=== PATIENT | male | born 1975 | race Caucasian/White ===

== ENCOUNTER → 2018-02-06 | Outpatient (CLI) | payer OTHER ==
--- NOTE | 2018-02-07 05:18 | MR ---
EXAMINATION TYPE: MR cervical spine wo con DATE OF EXAM: 02/06/2018 COMPARISON: HISTORY: Neck pain TECHNIQUE: Multiplanar, multisequence images of the cervical spine were acquired. The cervical vertebra have normal alignment. Disc spaces are fairly well-maintained. Cervical spinal cord has normal signal pattern. There is no edema. There is no cervical paraspinal mass. Posterior el ements are intact. There is no spinal stenosis. I see no bony destructive process. Skull base appears normal. Brainstem appears intact. IMPRESSION: Negative MR scan of the cervical spine. No disc herniation or spinal stenosis.
== END | disposition home or self-care (01) ==
LOC: RADMRIMAIN 20:00
PROVIDERS: ATTEND Psychiatry & Neurology Neurology
DX: M54.2 Cervicalgia (principal); M54.5 Low back pain
CPT/HCPCS: 72141

== ENCOUNTER → 2018-02-08 | Outpatient (CLI) | payer OTHER | END | disposition home or self-care (01) | LOC: RADMRIMAIN 19:24 | PROVIDERS: ATTEND Psychiatry & Neurology Neurology | DX: Z53.9 Procedure and treatment not carried out, unspecified reason (principal) ==

== ENCOUNTER → 2018-03-09 | Outpatient (CLI) | payer OTHER ==
[2018-03-09 14:28] LABS: Blood Urea Nitrogen 16 mg/dL (9-20)
--- NOTE | 2018-03-11 08:53 | MR ---
EXAMINATION TYPE: MR lumbar spine wo/w con DATE OF EXAM: 03/09/2018 3:16 PM COMPARISON: NONE HISTORY: Low back pain CONTRAST: The patient was injected with 7.5 mL intravenous Gadavist gadolinium contrast. Multiplanar, MultiSpin echo imaging of the lumbar spine was performed. L1-L2: Mild disc desiccation noted. Mild circumferential disc bulge with minimal effacement ventral t hecal sac. No evidence for disc herniation protrusion or central stenosis. Foramina are patent bilate rally. L2-L3: Normal disc appearance without desiccation. No herniation, protrusion or disc bulging. No ca nal stenosis is present. Foramina are patent bilaterally. L3-L4: Mild disc desiccation noted. Mild circumferential disc bulge with minimal effacement ventral t hecal sac. No evidence for disc herniation protrusion or central stenosis. Foramina are patent bilate rally. L4-L5: Mild disc desiccation noted. Left paracentral disc bulge with a mild annular tear. No evidence for delaney disc herniation. No central stenosis or foraminal encroachment. L5-S1: Normal disc appearance without desiccation. No herniation, protrusion or disc bulging. No ca nal stenosis is present. Foramina are patent bilaterally. Lumbar segments are intact. No paraspinal masses are identified. Conus medullaris has a normal appe arance. No pathologic enhancement detected. IMPRESSION: 1. Disc desiccation is noted. 2. Left paracentral disc bulge with annular tear at L4-5 as discussed.
== END | disposition home or self-care (01) ==
LOC: RADMRIMAIN 13:42
PROVIDERS: ATTEND Psychiatry & Neurology Neurology
DX: M51.26 Other intervertebral disc displacement, lumbar region (principal)
CPT/HCPCS: 82565; 84520; 72158; 36415; A9585

== ENCOUNTER → 2018-04-27 | Outpatient (CLI) | payer OTHER ==
[2018-04-27 12:20] LABS: HCT 54.6 % (39.0-53.0); HGB 18.1 gm/dL (13.0-17.5); MCH 31.8 pg (25.0-35.0); MCHC 33.2 g/dL (31.0-37.0); MCV 95.8 fL (80.0-100.0); Mean Platelet Volume 6.6; Platelet Count 229 k/uL (150-450); RBC 5.71 m/uL (4.30-5.90); RDW 14.2 % (11.5-15.5); WBC 9.6 k/uL (3.8-10.6)
[2018-04-27 16:51] LABS: Albumin 4.2 g/dL (3.80-4.90); Albumin/Globulin Ratio 1.91 (1.20-2.10); Anion Gap 2.6 mmol/L (4.00-12.00); Calcium 9.9 mg/dL (8.7-10.3); Carbon Dioxide 30.4 mmol/L (21.6-31.8); Globulin 2.2 g/dL (2.1-3.7); LDL Cholesterol,Calculated 98.8 mg/dL (0.0-131.0); Potassium 5.2 mmol/L (3.5-5.5); Total Bilirubin 0.8 mg/dL (0.2-1.2); Total Protein 6.4 g/dL (6.2-8.2); VLDL Calculation 27.2 mg/dL (5.00-40.00)
[2018-04-27 16:58] LABS: T4, Free (Free Thyroxine) 1.2 ng/dL (0.80-1.80)
[2018-04-27 17:15] LABS: Hemoglobin A1C 5.7 % (4.0-6.0)
[2018-04-29 22:28] LABS: Hepatitis A Antibody IgM Non-Reactive (Non-Reactive); Hepatitis B Core IgM Non-Reactive (Non-Reactive)
== END ==
LOC: LABWHC1 11:24
PROVIDERS: ATTEND Family Medicine
DX: Z00.00 Encounter for general adult medical examination without abnormal findings (principal); E03.9 Hypothyroidism, unspecified; F17.210 Nicotine dependence, cigarettes, uncomplicated; Z12.5 Encounter for screening for malignant neoplasm of prostate
CPT/HCPCS: 36415; 80053; 80061; 80074; 83036; 84153; 84439; 84443; 85027

== ENCOUNTER 2020-09-27 11:57 | Emergency (ER) | payer OTHER ==
[2020-09-27 12:03] VITALS: TEMP 98
[2020-09-27] MEDS ORDERED: ASPIRIN 81 MG PO STA (12:12)
[2020-09-27] MEDS ORDERED: IPRATROPIUM-ALBUTEROL 3 ML NEB INHALATION STA (12:42)
[2020-09-27] MEDS ORDERED: methylPREDNISolone SOD SUCCI 125 MG/2 ML VIAL IV STA (12:42)
--- NOTE | 2020-09-27 12:47 | ED ---
General Adult HPI - General Chief complaint: Chest Pain Stated complaint: collapsing Time Seen by Provider: 09/27/20 12:05 Source: patient, family Mode of arrival: wheelchair Limitations: no limitations - History of Present Illness Initial comments: 45-year-old male with a past medical history of hypertension, valve replacement, CHD, nicotine dependence presents to the emergency room for a chief complaint of chest pain. Patient reports and history as a dull ache in his chest. States it radiates to his left shoulder. Patient also admits to some mild shortness of breath but states that this is not abnormal for him. Patient reports the pain worsens with exertion. Patient denies nausea or diaphoresis. Patient denies any pain radiating to the back. Denies any ripping or tearing pain. Patient does have a smoking history and history of hypertension.Patient has no other complaints at this time including abdominal pain, nausea or vomiting, headache, or visual changes. - Related Data Home Medications Medication Instructions Recorded Confirmed Unable To Assess [Unable to Assess] 01/17/15 01/17/15 Allergies Allergy/AdvReac Type Severity Reaction Status Date / Time No Known Allergies Allergy Verified 09/27/20 12:03 Review of Systems ROS Statement: Those systems with pertinent positive or pertinent negative responses have been documented in the HPI. ROS Other: All systems not noted in ROS Statement are negative. Past Medical History Past Medical History: Hypertension History of Any Multi-Drug Resistant Organisms: None Reported Additional Past Surgical History / Comment(s): heart bypass, valve replacement, tetralogy of fallot as an . Past Psychological History: Anxiety Smoking Status: Current every day smoker Past Alcohol Use History: Occasional Past Drug Use History: None Reported General Exam Limitations: no limitations General appearance: alert, in no apparent distress Head exam: Present: atraumatic, normocephalic, normal inspection Eye exam: Present: normal appearance ENT exam: Present: normal exam Neck exam: Present: normal inspection, full ROM. Absent: tenderness, meningismus, lymphadenopathy Respiratory exam: Present: wheezes. Absent: respiratory distress, rales, rhonchi, stridor Cardiovascular Exam: Present: regular rate, normal rhythm, normal heart sounds. Absent: systolic murmur, diastolic murmur, rubs, gallop, clicks GI/Abdominal exam: Present: soft, normal bowel sounds. Absent: distended, tenderness, guarding, rebound, rigid Course Vital Signs 05/17/21 05/17/21 05/17/21 12:00 13:01 13:03 Temperature 98 F Pulse Rate 90 86 82 Respiratory 22 18 Rate Blood Pressure 161/98 162/94 O2 Sat by Pulse 97 95 Oximetry 09/27/20 13:09 Temperature Pulse Rate 88 Respiratory Rate Blood Pressure O2 Sat by Pulse Oximetry EKG Findings - EKG Comments: EKG Findings:: Normal sinus rhythm, ventricular rate 85, RI interval 1:30, QTC 509 Medical Decision Making - Medical Decision Making Vitals are stable. Patient is well-appearing. Patient does have chest pain today radiating to the left shoulder with pain worsening on exertion. CBC is unremarkable however patient does have elevated hemoglobin likely secondary to chronic smoking. CMP is unremarkable. EKG does show a right bundle, troponin negative. Chest x-ray does not show any acute process. Patient does have a history of tetralogy of flow. Given chest pain with typical symptoms and cardiac history patient will be admitted for cardiology consultation. I did speak with Dr. Levine who would like me to verify patient wants to stay here or to [facility] given his CHD history. Patient prefers to go to [facility] for this. Patient is adamantly refusing in the transport stating that his significant other will drive him. I did discuss I prefer for him to go by ambulance however he is adamantly refusing, aware of the risks of private vehicle transport. - Lab Data Result diagrams: 09/27/20 12:34 09/27/20 12:34 Lab Results 09/27/20 09/27/20 09/27/20 Range/Units 12:12 12:34 12:34 WBC 9.9 (3.8-10.6) k/uL RBC 5.79 (4.30-5.90) m/uL Hgb 18.4 H (13.0-17.5) gm/dL Hct 54.7 H (39.0-53.0) % MCV 94.5 (80.0-100.0) fL MCH 31.7 (25.0-35.0) pg MCHC 33.6 (31.0-37.0) g/dL RDW 13.8 (11.5-15.5) % Plt Count 254 (150-450) k/uL MPV 6.6 Neutrophils % 74 % Lymphocytes % 17 % Monocytes % 6 % Eosinophils % 2 % Basophils % 1 % Neutrophils # 7.3 (1.3-7.7) k/uL Lymphocytes # 1.7 (1.0-4.8) k/uL Monocytes # 0.6 (0-1.0) k/uL Eosinophils # 0.2 (0-0.7) k/uL Basophils # 0.1 (0-0.2) k/uL PT 10.4 (9.0-12.0) sec INR 1.0 (<1.2) APTT 24.4 (22.0-30.0) sec Sodium (137-145) mmol/L Potassium (3.5-5.1) mmol/L Chloride (98-107) mmol/L Carbon Dioxide (22-30) mmol/L Anion Gap mmol/L BUN (9-20) mg/dL Creatinine (0.66-1.25) mg/dL Est GFR (CKD-EPI)AfAm (>60 ml/min/1.73 sqM) Est GFR (CKD-EPI)NonAf (>60 ml/min/1.73 sqM) Glucose (74-99) mg/dL Calcium (8.4-10.2) mg/dL Magnesium (1.6-2.3) mg/dL Total Bilirubin (0.2-1.3) mg/dL AST (17-59) U/L ALT (4-49) U/L Alkaline Phosphatase (38-126) U/L Troponin I (0.000-0.034) ng/mL NT-Pro-B Natriuret Pep pg/mL Total Protein (6.3-8.2) g/dL Albumin (3.5-5.0) g/dL Coronavirus (PCR) Not Detected (Not Detectd) 09/27/20 09/27/20 09/27/20 Range/Units 12:34 12:34 12:34 WBC (3.8-10.6) k/uL RBC (4.30-5.90) m/uL Hgb (13.0-17.5) gm/dL Hct (39.0-53.0) % MCV (80.0-100.0) fL MCH (25.0-35.0) pg MCHC (31.0-37.0) g/dL RDW (11.5-15.5) % Plt Count (150-450) k/uL MPV Neutrophils % % Lymphocytes % % Monocytes % % Eosinophils % % Basophils % % Neutrophils # (1.3-7.7) k/uL Lymphocytes # (1.0-4.8) k/uL Monocytes # (0-1.0) k/uL Eosinophils # (0-0.7) k/uL Basophils # (0-0.2) k/uL PT (9.0-12.0) sec INR (<1.2) APTT (22.0-30.0) sec Sodium 141 (137-145) mmol/L Potassium 4.1 (3.5-5.1) mmol/L Chloride 105 (98-107) mmol/L Carbon Dioxide 30 (22-30) mmol/L Anion Gap 6 mmol/L BUN 17 (9-20) mg/dL Creatinine 1.05 (0.66-1.25) mg/dL Est GFR (CKD-EPI)AfAm >90 (>60 ml/min/1.73 sqM) Est GFR (CKD-EPI)NonAf 85 (>60 ml/min/1.73 sqM) Glucose 104 H (74-99) mg/dL Calcium 9.8 (8.4-10.2) mg/dL Magnesium 1.8 (1.6-2.3) mg/dL Total Bilirubin 0.8 (0.2-1.3) mg/dL AST 33 (17-59) U/L ALT 35 (4-49) U/L Alkaline Phosphatase 48 (38-126) U/L Troponin I <0.012 (0.000-0.034) ng/mL NT-Pro-B Natriuret Pep 194 pg/mL Total Protein 7.3 (6.3-8.2) g/dL Albumin 4.2 (3.5-5.0) g/dL Coronavirus (PCR) (Not Detectd) Disposition Clinical Impression: Chest pain Disposition: OTHER INSTITUTION NOT DEFINED Is patient prescribed a controlled substance at d/c from ED?: No Referrals: Joesph Levine Jr, [Primary Care Provider] - 1-2 days Time of Disposition: 13:52 - Out of Hospital Transfer - Req. Specs Out of Hospital Transfer - Requested Specifics: Other Emergency [facility] ([facility])
[2020-09-27 12:53] LABS: Basophils # (A) 0.1 k/uL (0-0.2); Basophils % (A) 1 %; Eosinophils # (A) 0.2 k/uL (0-0.7); Eosinophils % (A) 2 %; HCT 54.7 % (39.0-53.0); HGB 18.4 gm/dL (13.0-17.5); Lymphocytes # (A) 1.7 k/uL (1.0-4.8); Lymphocytes % (A) 17 %; MCH 31.7 pg (25.0-35.0); MCHC 33.6 g/dL (31.0-37.0); MCV 94.5 fL (80.0-100.0); Mean Platelet Volume 6.6; Monocytes # (A) 0.6 k/uL (0-1.0); Monocytes % (A) 6 %; Neutrophils # (A) 7.3 k/uL (1.3-7.7); Neutrophils % (A) 74 %; Platelet Count 254 k/uL (150-450); RBC 5.79 m/uL (4.30-5.90); RDW 13.8 % (11.5-15.5); WBC 9.9 k/uL (3.8-10.6)
[2020-09-27 13:04] LABS: ALT 35 U/L (4-49); AST 33 U/L (17-59); African American GFR (CKD) >90 (>60 ml/min/1.73 sqM); Albumin 4.2 g/dL (3.5-5.0); Alkaline Phosphatase 48 U/L (38-126); Anion Gap 6 mmol/L; Blood Urea Nitrogen 17 mg/dL (9-20); Calcium 9.8 mg/dL (8.4-10.2); Carbon Dioxide 30 mmol/L (22-30); Chloride 105 mmol/L (98-107); Glucose 104 mg/dL (74-99); Magnesium 1.8 mg/dL (1.6-2.3); Non-African American GFR(CKD) 85 (>60 ml/min/1.73 sqM); Potassium 4.1 mmol/L (3.5-5.1); Sodium 141 mmol/L (137-145); Total Bilirubin 0.8 mg/dL (0.2-1.3); Total Protein 7.3 g/dL (6.3-8.2)
--- NOTE | 2020-09-27 13:07 | XR ---
EXAMINATION TYPE: XR chest 2V DATE OF EXAM: 09/27/2020 COMPARISON: Chest x-rays 01/17/2015 HISTORY: Chest pain TECHNIQUE: Frontal and lateral views of the chest are obtained. FINDINGS: There is no focal air space opacity, pleural effusion, or pneumothorax seen. The cardiac silhouette size is stable. There is increased AP diameter of the chest, patient is post median sterno brittanie. There is a stent present at the level of the paraspinal location as on prior, paraspinal densit y is stable at this level. Embolization wires are present superimposed over the mediastinum as on ritchie or exam. The osseous structures are intact. IMPRESSION: No acute cardiopulmonary process. Postop changes. Correlate with surgical history.
[2020-09-27 13:26] LABS: Partial Thromboplastin Time 24.4 sec (22.0-30.0); Prothrombin Time 10.4 sec (9.0-12.0)
[2020-09-27] MEDS ORDERED: NITROGLYCERIN SL TABS 0.4 MG TAB SUBLINGUAL PRN (13:52)
[2020-09-27 14:37] VITALS: RESP 20
[2020-09-27] MEDS ORDERED: ALPRAZolam 0.5 MG TAB PO STA (14:49)
[2020-09-27 15:12] VITALS: BP 155/88; PULSE 88
[2020-09-27] MEDS ORDERED: IPRATROPIUM-ALBUTEROL 3 ML NEB INHALATION SCH (18:00)
[2020-09-28] MEDS ORDERED: ASPIRIN 325 MG TAB PO SCH (09:00)
== END 2020-09-27 15:12 | disposition other institution (70) ==
LOC: EC 11:57
DX: R07.89 Other chest pain (principal); I10 Essential (primary) hypertension; F17.200 Nicotine dependence, unspecified, uncomplicated; Z95.1 Presence of aortocoronary bypass graft; Z95.2 Presence of prosthetic heart valve; Z20.822 Contact with and (suspected) exposure to COVID-19
CPT/HCPCS: 99285 ×2; 96374 ×2; 36415; 94640; 93005; 83880; 80053; 83735; 84484; 85025; 85610; 85730; 87635; 71046; J2930

== ENCOUNTER 2020-09-30 14:04 | Emergency (ER) | payer OTHER ==
--- NOTE | 2020-09-30 15:30 | ED ---
General Adult HPI - General Chief complaint: Psychiatric Symptoms Stated complaint: Mental Health Time Seen by Provider: 09/30/20 14:51 Source: patient, RN notes reviewed Mode of arrival: ambulatory Limitations: no limitations - History of Present Illness Initial comments: 35-year-old male with a past medical history of hypertension who presents to the emergency room for a chief complaint of anxiety. Patient reports that his anxiety has been acting out more than normal recently. States things in his life are adding up. States there is stress involving his children. Patient reports he has a history of anxiety and used to take medication for this but stopped. States he is trying to get into an outpatient counselor. He does report that recently he has had thoughts of suicide but does not have a plan and would never let it get that far. He notes he has his kids to live for. Patient has no other complaints at this time including shortness of breath, chest pain, abdominal pain, nausea or vomiting, headache, or visual changes. - Related Data Home Medications Medication Instructions Recorded Confirmed Albuterol Nebulized [Ventolin 2.5 mg INHALATION RT-Q6H PRN 09/27/20 09/27/20 Nebulized] Aspirin 81 mg PO DAILY 09/27/20 09/27/20 Baclofen [Lioresal] 20 mg PO BID 09/27/20 09/27/20 Cetirizine HCl 10 mg PO HS 09/27/20 09/27/20 Cholecalciferol [Vitamin D3 (25 25 mcg PO DAILY 09/27/20 09/27/20 Mcg = 1000 Iu)] Cyanocobalamin (Vitamin B-12) 1,000 mcg PO DAILY 09/27/20 09/27/20 [Vitamin B-12] Dextroamphetamine/Amphetamine 20 mg PO BID 09/27/20 09/27/20 [Adderall] Fluticasone Propionate [Flovent 2 puff INHALATION BID 09/27/20 09/27/20 Hfa 220 mcg] HYDROcodone/APAP 5-325MG [[place] 1 tab PO TID PRN 09/27/20 09/27/20 5-325] Ibuprofen [Motrin] 800 mg PO Q8H 09/27/20 09/27/20 Levothyroxine Sodium 25 mcg PO DAILY 09/27/20 09/27/20 Losartan Potassium 50 mg PO DAILY 09/27/20 09/27/20 Montelukast [Singulair] 10 mg PO DAILY 09/27/20 09/27/20 Naloxone HCl [Narcan] 1 spray NASAL DIRECTED 09/27/20 09/27/20 Omeprazole 20 mg PO DAILY 09/27/20 09/27/20 Vit C/Ascorb Sod/Multivit-Min 1,000 mg PO DAILY 09/27/20 09/27/20 [Emergen-C 500 mg Chewable Tab] Vitamin B Complex 1 cap PO DAILY 09/27/20 09/27/20 Vitamin C W/ Zinc 1 tab PO DAILY 09/27/20 amLODIPine [Norvasc] 2.5 mg PO DAILY 09/27/20 09/27/20 atenoloL [Tenormin] 25 mg PO DAILY 09/27/20 09/27/20 Allergies Allergy/AdvReac Type Severity Reaction Status Date / Time No Known Allergies Allergy Verified 09/30/20 14:05 Review of Systems ROS Statement: Those systems with pertinent positive or pertinent negative responses have been documented in the HPI. ROS Other: All systems not noted in ROS Statement are negative. Past Medical History Past Medical History: Hypertension History of Any Multi-Drug Resistant Organisms: None Reported Past Surgical History: Coronary Bypass/CABG Additional Past Surgical History / Comment(s): heart bypass, valve replacement, tetralogy of fallot as an . Past Psychological History: Anxiety Smoking Status: Current every day smoker Past Alcohol Use History: Occasional Past Drug Use History: Marijuana General Exam Limitations: no limitations General appearance: alert, in no apparent distress, anxious Head exam: Present: atraumatic, normocephalic, normal inspection Eye exam: Present: normal appearance, PERRL, EOMI. Absent: scleral icterus, conjunctival injection, periorbital swelling ENT exam: Present: normal exam, mucous membranes moist Neck exam: Present: normal inspection, full ROM. Absent: tenderness, meningismus, lymphadenopathy Respiratory exam: Present: normal lung sounds bilaterally. Absent: respiratory distress, wheezes, rales, rhonchi, stridor Cardiovascular Exam: Present: regular rate, normal rhythm, normal heart sounds. Absent: systolic murmur, diastolic murmur, rubs, gallop, clicks GI/Abdominal exam: Present: soft, normal bowel sounds. Absent: distended, ten derness, guarding, rebound, rigid Neurological exam: Present: alert, oriented X3 Psychiatric exam: Present: suicidal ideation. Absent: homicidal ideation Course Vital Signs 09/30/20 09/30/20 09/30/20 14:05 15:41 20:32 Temperature 97.9 F 97.8 F 97.8 F Pulse Rate 76 73 70 Respiratory 18 16 20 Rate Blood Pressure 156/93 159/98 O2 Sat by Pulse 98 98 97 Oximetry Medical Decision Making - Medical Decision Making Patient was seen by EPS, recommending outpatient management. Patient does have a safety plan. Patient will follow-up at [facility] which she has already contacted and has an appointment scheduled for. He will return for any worsening symptoms. - Lab Data Lab Results 09/30/20 Range/Units 15:51 Urine Opiates Screen Not Detected (NotDetected) Ur Oxycodone Screen Not Detected (NotDetected) Urine Methadone Screen Not Detected (NotDetected) Ur Propoxyphene Screen Not Detected (NotDetected) Ur Barbiturates Screen Not Detected (NotDetected) U Tricyclic Antidepress Not Detected (NotDetected) Ur Phencyclidine Scrn Not Detected (NotDetected) Ur Amphetamines Screen Detected H (NotDetected) U Methamphetamines Scrn Not Detected (NotDetected) U Benzodiazepines Scrn Not Detected (NotDetected) Urine Cocaine Screen Not Detected (NotDetected) U Marijuana (THC) Screen Detected H (NotDetected) Disposition Clinical Impression: Depression Disposition: HOME SELF-CARE Condition: Good Instructions (If sedation given, give patient instructions): Depression (ED) Additional Instructions: Please follow up with your doctor. Return to the emergency room for any worsening symptoms. Is patient prescribed a controlled substance at d/c from ED?: No Referrals: Joesph Levine Jr, [Primary Care Provider] - 1-2 days Time of Disposition: 21:16
[2020-09-30 15:42] VITALS: TEMP 97.8
[2020-09-30 16:13] LABS: Amphetamine Screen,Urine Detected (NotDetected); Barbiturate Screen,Urine Not Detected (NotDetected); Benzodiazepines Screen,Urine Not Detected (NotDetected); Cocaine Screen,Urine Not Detected (NotDetected); Methadone Screen, Urine Not Detected (NotDetected); Opiate Screen,Urine Not Detected (NotDetected); Oxycodone Screen, Urine Not Detected (NotDetected); Phencyclidine Screen,Urine Not Detected (NotDetected); Tricyclic Antidepressant,Urine Not Detected (NotDetected); Urn Cannabinoid Scrn Detected (NotDetected)
[2020-09-30 20:36] VITALS: BP 159/98; PULSE 70; RESP 20
== END 2020-09-30 21:30 | disposition home or self-care (01) ==
LOC: EC 14:04
DX: F32.9 Major depressive disorder, single episode, unspecified (principal); F41.9 Anxiety disorder, unspecified; R45.851 Suicidal ideations; I10 Essential (primary) hypertension; Z79.82 Long term (current) use of aspirin; Z79.1 Long term (current) use of non-steroidal anti-inflammatories (NSAID); F17.200 Nicotine dependence, unspecified, uncomplicated; F12.90 Cannabis use, unspecified, uncomplicated
CPT/HCPCS: 80306; 82075; 99285

== ENCOUNTER 2023-06-11 11:53 | Day surgery (SDC) | payer OTHER ==
[2023-06-06 12:27] VITALS: BMI 28.8
[~2023-06-11 11:53] MED LIST: LACTATED RINGERS 1,000 ML IV SCH; LIDOCAINE 1% (10MG/ML) FOR IV START INTRADERMA PRN
[2023-06-11 13:23] VITALS: RESP 16; TEMP 97.7
[2023-06-11] MEDS ORDERED: PROPOFOL 10 MG/ML 20 ML VIAL IV ONE (14:10)
[2023-06-11] MEDS ORDERED: LIDOCAINE 1% INJ 10MG/ML (20 ML MDV) ONE (14:10)
--- NOTE | 2023-06-11 14:28 | P.OP ---
Date of Procedure: 06/11/23 Preoperative Diagnosis: Gerd Postoperative Diagnosis: Antral gastritis Hiatal hernia Esophagitis Procedure(s) Performed: EGD Anesthesia: MAC Surgeon: Kedar Mullen Pathology: other (antrum, esophagus) Condition: stable Disposition: PACU Description of Procedure: Patient was placed on the endoscopy table in the lateral position. He received IV sedation. The gas was placed oropharynx passed in the esophagus and the stomach. Scope was placed through the pylorus. The first and second portion of the duodenum appeared normal. Scope was then repacked the antrum was. Mild inflamed. A biopsy was performed. The scope was then retroflexed remainder of the stomach appeared normal. The patient had a moderate size hiatal hernia. The GE junction was at 40 cm. The distal esophagus. Flaim. A biopsy performed. The proximal esophagus appeared normal. Scope was withdrawn for the patient.
[2023-06-11 14:48] VITALS: BP 137/84; PULSE 58
== END 2023-06-11 15:02 | disposition home or self-care (01) ==
LOC: ORWHC2ENDO 11:53
PROVIDERS: ATTEND Surgery
DX: K29.50 Unspecified chronic gastritis without bleeding (principal); K31.9 Disease of stomach and duodenum, unspecified; K21.00 Gastro-esophageal reflux disease with esophagitis, without bleeding; K44.9 Diaphragmatic hernia without obstruction or gangrene
CPT/HCPCS: 88305; 43239; J2001; J2704

== ENCOUNTER → 2023-06-14 | Outpatient (CLI) | payer OTHER ==
--- NOTE | 2023-06-14 15:27 | NM ---
EXAMINATION TYPE: NM hepatobiliary w CCK DATE OF EXAM: 06/14/2023 COMPARISON: NONE CLINICAL INDICATION: Male, 47 years old with history of K82.8 BILIARY DYSKINESIA; TECHNIQUE: After the intravenous administration of 4.8 mCi Tc 99m Mebrofenin hepatobiliary scintigrap hy is performed. Immediate images post injection. FINDINGS: There is satisfactory initial accumulation of tracer by the liver. The gallbladder is visualized wit hin 6 minutes. The small bowel activity is noted within 18 minutes. At one hour CCK was administere d, patient was injected with 1.7 mcg of Kinevac, and gallbladder ejection fraction is calculated at 9 2 %, elevated above the expected range (35-80%). IMPRESSION: 1. No scintigraphic evidence for acute/chronic cholecystitis or biliary dyskinesia. 2. Increased gallbladder ejection fraction of 92% may be seen with gallbladder hyperkinesis.
== END | disposition home or self-care (01) ==
LOC: RADNMMAIN 06:53
PROVIDERS: ATTEND Surgery
DX: K82.8 Other specified diseases of gallbladder (principal)
CPT/HCPCS: 78227; A9537; J2805

== ENCOUNTER 2023-07-30 06:45 | Day surgery (SDC) | payer BC, OTHER ==
[~2023-07-30 06:45] MED LIST changes: +DEXAMETHASONE SOD PHOSPHATE 4 MG/ML 1 ML VIAL IV ONE; +HYDROmorphone 0.5 MG/0.5 ML SYRINGE IVP PRN; -LACTATED RINGERS 1,000 ML IV SCH; +METOCLOPRAMIDE 5 MG/ML 2 ML VIAL IVP PRN; +ONDANSETRON 4 MG/2 ML VIAL IVP ONE
[2023-07-30] MEDS: LACTATED RINGERS 1,000 ML IV SCH (07:18)
[2023-07-30] MEDS ORDERED: METOCLOPRAMIDE 5 MG/ML 2 ML VIAL IVP STA (07:24)
[2023-07-30] MEDS: ONDANSETRON 4 MG/2 ML VIAL ONE (07:25)
[2023-07-30] MEDS: DEXAMETHASONE SOD PHOSPHATE 4 MG/ML 1 ML VIAL IVP ONE (07:26)
[2023-07-30] MEDS ORDERED: diphenhydrAMINE 50 MG/ML 1 ML VIAL ONE (07:27)
[2023-07-30] MEDS: diphenhydrAMINE 50 MG/ML 1 ML VIAL IVP STA (07:35)
[2023-07-30 07:38] LABS: Basophils # (A) 0.1 k/uL (0-0.2); Basophils % (A) 1 %; Eosinophils # (A) 0.2 k/uL (0-0.7); Eosinophils % (A) 2 %; HCT 45.7 % (39.0-53.0); HGB 15.1 gm/dL (13.0-17.5); Lymphocytes # (A) 1.7 k/uL (1.0-4.8); Lymphocytes % (A) 14 %; MCH 31.2 pg (25.0-35.0); MCHC 33.1 g/dL (31.0-37.0); MCV 94.1 fL (80.0-100.0); Mean Platelet Volume 6.8; Monocytes # (A) 0.7 k/uL (0-1.0); Monocytes % (A) 6 %; Neutrophils # (A) 9.4 k/uL (1.3-7.7); Neutrophils % (A) 77 %; Platelet Count 216 k/uL (150-450); RBC 4.85 m/uL (4.30-5.90); RDW 14.6 % (11.5-15.5); WBC 12.1 k/uL (3.8-10.6)
[2023-07-30] MEDS: METOCLOPRAMIDE 5 MG/ML 2 ML VIAL ONE (07:40)
[2023-07-30] MEDS: FAMOTIDINE 20 MG/2 ML VIAL IV SCH (07:41)
[2023-07-30 07:49] LABS: African American GFR (CKD) 67 (>60 ml/min/1.73 sqM); Anion Gap 7 mmol/L; Blood Urea Nitrogen 25 mg/dL (9-20); Calcium 9.2 mg/dL (8.4-10.2); Carbon Dioxide 25 mmol/L (22-30); Chloride 109 mmol/L (98-107); Glucose 116 mg/dL (74-99); Non-African American GFR(CKD) 58 (>60 ml/min/1.73 sqM); Potassium 4.3 mmol/L (3.5-5.1); Sodium 141 mmol/L (137-145)
[2023-07-30] MEDS ORDERED: SUCCINYLCHOLINE CHLORIDE 200 MG/10 ML VIAL IV ONE (07:50)
[2023-07-30] MEDS ORDERED: GLYCOPYRROLATE 0.2 MG/ML 2 ML VIAL ONE (07:50)
[2023-07-30] MEDS ORDERED: LIDOCAINE 1% INJ 10MG/ML (20 ML MDV) ONE (07:50)
[2023-07-30] MEDS ORDERED: fentaNYL (PF) 50 MCG/ML 2 ML AMP ONE (07:50)
[2023-07-30] MEDS ORDERED: NEOSTIGMINE 1 MG/ML 10 ML VIAL ONE (07:50)
[2023-07-30] MEDS ORDERED: ROCURONIUM 10 MG/ML (5 ML VIAL) IV ONE (07:50)
[2023-07-30] MEDS ORDERED: PROPOFOL 10 MG/ML 20 ML VIAL IV ONE (07:50)
[2023-07-30] MEDS ORDERED: MIDAZOLAM 2 MG/2 ML VIAL ONE (07:50)
[2023-07-30] MEDS ORDERED: HYDROmorphone (PF) 1 MG/ML ONE (07:50)
[2023-07-30] MEDS: BUPIVACAINE (PF) 0.25% 30 ML VIAL SQ ONE (08:16)
--- NOTE | 2023-07-30 08:40 | P.OP ---
Date of Procedure: 07/30/23 Preoperative Diagnosis: Cholecystitis Postoperative Diagnosis: Cholecystitis Procedure(s) Performed: Laparoscopic cholecystectomy Anesthesia: PRISCILLA Surgeon: Kedar Mullen Estimated Blood Loss (ml): 5 Pathology: other (Gallbladder) Condition: stable Disposition: PACU Description of Procedure: The patient was placed on the operating table. The patient received a general endotracheal tube anesthesia. The patients abdomen was prepped and draped in the usual sterile fashion. Through an infraumbilical stab incision, the fascia of the anterior abdominal wall was grasped with a pair of Kochers and then the Veress needle was placed in the peritoneal cavity. Position of the Veress needle was confirmed with positive drop test. The abdomen was then insufflated. After adequate insufflation, the 10 mm trocar was placed in the peritoneal cavity. Following this the laparoscope was placed in the peritoneal cavity. The patient was placed in the head-up, right side up position and then a 5 mm trocar was placed in the right lateral and right subcostal position under direct visualization. A 8 mm trocar was placed in the epigastric position. The gallbladder was grasped in the fundus and infundibulum. Traction on the gallbladder was placed in the lateral and the cephalad positions. The triangle of Calot was visualized.. The cystic duct was bluntly dissected until the union of the cystic duct and common bile duct was seen. A critical view of safety was achieved. The cystic duct was then divided and sealed with the Harmonic scissors. A PDS Endoloop was then placed throughout the cystic duct stump. The cystic artery divided and sealed with the Harmonic scissors. The gallbladder was then removed from the liver bed using Harmonic scissors. The gallbladder was then extracted through the epigastric port site. Operative field was checked for any bleeding spots and Harmonic scissors was used to coagulate the liver bed. The abdomen was irrigated. The trocars were removed. The skin was closed using interrupted 3-0 Vicryl suture. Dermabond dressing were applied. The patient tolerated the procedure well.
[2023-07-30 08:51] VITALS: TEMP 97
[2023-07-30 10:34] VITALS: RESP 16
[2023-07-30 11:09] VITALS: BP 121/74; PULSE 68
== END 2023-07-30 10:52 | disposition home or self-care (01) ==
LOC: OR 06:45
PROVIDERS: ATTEND Surgery
DX: K81.1 Chronic cholecystitis (principal); I10 Essential (primary) hypertension; I37.8 Other nonrheumatic pulmonary valve disorders; J45.909 Unspecified asthma, uncomplicated; Z87.891 Personal history of nicotine dependence; E07.9 Disorder of thyroid, unspecified; F98.8 Other specified behavioral and emotional disorders with onset usually occurring in childhood and adolescence; F41.9 Anxiety disorder, unspecified; K21.9 Gastro-esophageal reflux disease without esophagitis; Z98.890 Other specified postprocedural states; Z79.890 Hormone replacement therapy; Z79.899 Other long term (current) drug therapy
CPT/HCPCS: 88304; 80048; 85025; 47562; J2250; J0330; J1200; J1100; J2710; J2765; J0690; J2405; J2001; J3010; J3490; J1170; J2704; J0665